=== PATIENT | male | born 1965 | race Caucasian/White ===

== ENCOUNTER → 2020-10-29 | Outpatient (CLI) | payer BC ==
[2020-10-29 10:34] LABS: HEMOGLOBIN 15.3 gm/dl (14.0-17.5); RED BLOOD COUNT 4.78 M/UL (4.20-5.50); WHITE BLOOD COUNT 8.1 K/UL (4.5-11.0)
[2020-10-29 11:03] LABS: BUN/CREATININE RATIO 15 (0-10)
== END ==
LOC: LAB 09:36
PROVIDERS: Family Medicine
DX: Z12.5 Encounter for screening for malignant neoplasm of prostate (principal); I10 Essential (primary) hypertension; M10.9 Gout, unspecified; N40.0 Benign prostatic hyperplasia without lower urinary tract symptoms
CPT/HCPCS: 36415; 80053; 80061; 83735; 84153; 84550; 85027

== ENCOUNTER → 2020-12-12 | Outpatient (CLI) | payer BC | LOC: KOH-I 08:42 | DX: R79.89 Other specified abnormal findings of blood chemistry (principal); K76.0 Fatty (change of) liver, not elsewhere classified; N28.9 Disorder of kidney and ureter, unspecified; Z90.49 Acquired absence of other specified parts of digestive tract | CPT/HCPCS: 76700 ==

== ENCOUNTER → 2021-01-07 | Outpatient (CLI) | payer BC | LOC: EMI 12-31 10:00 | DX: H90.3 Sensorineural hearing loss, bilateral (principal); H93.11 Tinnitus, right ear | CPT/HCPCS: 70553; A9577 ==

== ENCOUNTER → 2021-01-27 | Outpatient (CLI) | payer BC | LOC: EXRD 10:18 | DX: M79.671 Pain in right foot (principal); M19.071 Primary osteoarthritis, right ankle and foot | CPT/HCPCS: 73630 ==

== ENCOUNTER → 2021-04-06 | Outpatient (CLI) | payer BC | LOC: KOH-I 09:29 | DX: M79.671 Pain in right foot (principal) | CPT/HCPCS: 73630 ==

== ENCOUNTER → 2022-02-03 | Outpatient (CLI) | payer BC | LOC: EXRD 10:28 | DX: M54.50 Low back pain, unspecified (principal); M47.816 Spondylosis without myelopathy or radiculopathy, lumbar region | CPT/HCPCS: 72110 ==

== ENCOUNTER → 2022-03-25 | Outpatient (CLI) | payer BC | LOC: KOH-I 12:33 | DX: E04.9 Nontoxic goiter, unspecified (principal) | CPT/HCPCS: 76536 ==